=== PATIENT | female | born 1955 | race Caucasian/White ===

== ENCOUNTER → 2021-05-24 08:05 | Outpatient (CLI) | payer OTHER, SELFPAY ==
[2021-05-24 08:29] LABS: COVID19 -Nasal RAPID Negative (Negative)
== END ==
PROVIDERS: PCP Family Medicine; Visit Provider Specialist
DX: Z01.812 Encounter for preprocedural laboratory examination (principal); Z20.822 Contact with and (suspected) exposure to COVID-19
CPT/HCPCS: 87635

== ENCOUNTER 2021-05-24 08:11 | Day surgery (SDC) | payer OTHER, SELFPAY ==
[2021-05-15 14:28] VITALS: BMI 27.9
--- NOTE | 2021-05-24 | PATH_ITS ---
[facility] Accession Number: [id number] . 01 Material submitted: . PART A: cervix - LEEP PART B: endocervix - ENDOCERVICAL CURETTAGE . 01 Clinical history: . LEEP . 02 Diagnosis: A. Cervix, LEEP Biopsy: Focal involvement by low-grade squamous intraepithelial lesion / SERG 1. Changes consistent with previous instrumentation are present. The apparent margins are negative for dysplasia or malignancy. No invasive tuomr identified. . B. Endocervical Curettings: Rare, benign, cystically dilated glands and strips of glandular epithelium; negative for glandular dysplasia or malignancy. Scant avulsed portions of metaplastic squamous mucosa; negativ for squamous dysplasia or malignancy. V 05/28/2021 1813 Local . 02 Electronically signed: . Kim Vieyra MD, Pathologist NPI- [id number] . 01 Gross description: . A. The specimen is received in formalin, labeled LEEP, and consists of a 1.5 x 1.3 cm, mcclain-pink, smooth portion of ectocervix excised to a depth of 0.4 cm with a 0.7 x 0.1 cm os. The endocervical margin is inked blue. The ectocervical margin is inked black. The specimen is radially sectioned and entirely submitted in cassettes A1-A4. B. The specimen is received in formalin, labeled endocervical curettage, and consists of multiple minute mcclain fragments of soft tissue measuring 1.0 x 0.5 x 0.2 cm in aggregate. The specimen is filtered and entirely submitted in cassette B1. ([id number]) /FRR 05/25/2021 171 Local . 02 Pathologist provided ICD-10: N87.0 . 02 CPT . 848441, [id number] Performed at: [facility] [address] [id number] MD Waylon Matos MD Phone: [phone] [facility]formed at: [facility] [address] [place], [place] [id number] MD Irasema Nixon MD Phone: [phone]
[2021-05-24 08:34] VITALS: BMI 27.9
[2021-05-24 08:40] VITALS: BP 173/89; PULSE 82; RESP 16; TEMP 37.2; O2SAT 100
[2021-05-24] MEDS: LACTATED RINGERS 1,000 ML 42 ML IV (08:42)
[2021-05-24] MEDS: ACETAMINOPHEN 325 MG TABLET 975 MG PO (08:59)
--- NOTE | 2021-05-24 09:19 | PM.PREOP ---
Pre-operative Note COVID-19 COVID-19 status: Negative Result date/Date tested (Pos, Neg/Pending): 05/23/21 Interval Note History & Physical reviewed/Exam performed by Physician: Yes Changes to H&P: No
--- NOTE | 2021-05-24 09:43 | SUR.OPER ---
Lithotomy on padded OR bed, head on pillow, arms secured on padded arm boards at <90 degrees abduction. Legs secured in padded yellow fins stirrups.
[2021-05-24] MEDS: BUPIVACAINE 0.25% W/ EPI 30 ML VIAL INJ (09:50)
[2021-05-24] MEDS: FERRIC SUBSULFATE 8 GM SOLUTION 8 ML TOP (09:50)
[2021-05-24 09:55] VITALS: BP 116/67; PULSE 94; RESP 24; TEMP 36.5; O2SAT 100
[2021-05-24 09:59] VITALS: BP 112/64; PULSE 90; RESP 16; O2SAT 100
--- NOTE | 2021-05-24 10:01 | P.OP_ITS ---
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 A coated speculum was placed in the vagina. A single-tooth tenaculum was placed on the anterior lip of the cervix. Quarter % Marcaine with epinephrine was injected into the cervix. The loop cautery set at 60 w of cutting was used to remove the entire squamocolumnar junction. An ECC was performed. The base of the LEEP and extending outside of the LEEP was cauterized with the ball cautery set at 60 w of coag. Monsel's was placed. Patient went to recovery room in stable condition. Complications: none Post-operative Condition: stable Disposition: same day surgery Plan for aftercare: Home when awake and stable. Treatment and follow-up based on biopsy results.
[2021-05-24 10:04] VITALS: BP 132/76; PULSE 92; RESP 11; O2SAT 98
[2021-05-24 10:16] VITALS: BP 130/74; PULSE 91; RESP 13; TEMP 36.4; O2SAT 100
== END 2021-05-24 10:30 | disposition home or self-care (01) ==
PROVIDERS: PCP Family Medicine; Referring Provider Specialist; Visit Provider Specialist
PROC: 0UBC7ZZ Excision of Cervix, Via Natural or Artificial Opening (ICD-10-PCS; CPT 57522; principal; 2021-05-24 09:45)
DX: N87.0 Mild cervical dysplasia (principal); Z20.822 Contact with and (suspected) exposure to COVID-19; Z01.812 Encounter for preprocedural laboratory examination; R87.810 Cervical high risk human papillomavirus (HPV) DNA test positive
CPT/HCPCS: 57522; 87635; A9270; J2704

== ENCOUNTER → 2022-08-11 07:53 | Outpatient (CLI) | payer OTHER, SELFPAY ==
[2022-08-11 09:15] LABS: Add Manual Diff / Slide Review NO; Basophils Absolute Auto 100 /uL (0-100); Basophils Percent Auto 0.6 % (0-2); Eosinophils Absolute Auto 300 /uL (0-450); Eosinophils Percent Auto 4.3 % (2-4); Hematocrit 39.4 % (36-46); Hemoglobin 13.2 g/dL (12.0-16.0); Lymphocytes Absolute Auto 1700 /uL (1100-4500); Lymphocytes Percent Auto 20.7 % (25-40); Mean Corpuscular HGB Conc 33.4 % (30-36); Mean Corpuscular Hemoglobin 28.4 PG (26-34); Monocytes Absolute Auto 500 /uL (0-900); Monocytes Percent Auto 6.8 % (3-14); Neutrophils Absolute Auto 5400 /uL (1500-7000); Neutrophils Percent Auto 67.6 % (50-75); Platelet Count 228 X10^3/uL (150-400); Red Blood Cell Count 4.63 X10^6/uL (4.0-5.2); Red Cell Distribution Width 13.8 % (11.6-14.8)
[2022-08-11 09:44] LABS: Alanine Aminotransferase 18 IU/L (<35); Albumin 4.3 g/dL (3.5-5.0); Albumin Globulin Ratio 1.2 (1.0-2.8); Alkaline Phosphatase 109 U/L (38-126); Aspartate Aminotransferase 32 IU/L (14-36); BUN Creatinine Ratio 13.8 (6-22); Bilirubin Total 0.5 mg/dL (0.2-1.3); Blood Urea Nitrogen 12 mg/dL (7-17); Calcium 9.6 mg/dL (8.4-10.2); Carbon Dioxide 28 mmol/L (22-32); Chloride 104 mmol/L (98-107); Cholesterol 173 mg/dL (140-199); Estimated Glomerular Filt Rate > 60 mL/min (>60); Globulin 3.6 g/dL (1.7-4.1); Glucose 106 mg/dL (80-110); HDL Cholesterol 42 mg/dL (40-60); HEMOLYSIS < 15 (0-50); LDL Cholesterol Calculated 108 mg/dL (<100); Potassium 4.5 mmol/L (3.4-5.1); Sodium 141 mmol/L (137-145); Total Protein 7.9 g/dL (6.3-8.2); Triglycerides 117 mg/dL (35-150)
[2022-08-11 10:07] LABS: TSH w/ Reflex to FT4 < 0.02 uIU/mL (0.47-4.68)
[2022-08-11 10:32] LABS: Free T4, Direct Thyroxine 2.49 ng/dL (0.78-2.19)
== END ==
PROVIDERS: PCP Family Medicine; Referring Provider Family Medicine; Visit Provider Family Medicine
DX: E03.9 Hypothyroidism, unspecified (principal); Z85.3 Personal history of malignant neoplasm of breast
CPT/HCPCS: 36415; 80053; 80061; 84439; 84443; 85025

== ENCOUNTER → 2022-08-11 08:28 | Outpatient (CLI) | payer OTHER, SELFPAY ==
--- NOTE | 2022-08-11 08:30 | DI.MG.S_ITS ---
BILATERAL DIGITAL SCREENING MAMMOGRAM 3D/2D WITH CAD: 08/11/2022 CLINICAL: Routine screening. Personal history of left breast cancer. Comparison is made to exams dated: 11/18/2019 mammogram, 11/05/2018 mammogram, 09/26/2016 mammogram, and 10/30/2017 mammogram - [facility]. Both breasts are almost entirely fatty (category a/<25% glandular tissue). Current study was also evaluated with a Computer Aided Detection (CAD) system. There is a benign calcification in the left breast. There also are benign post operative findings in both breasts. No significant masses, calcifications, or other findings are seen in either breast. There has been no significant interval change. IMPRESSION: BENIGN There is no mammographic evidence of malignancy. A 1 year screening mammogram is recommended. This exam was interpreted at Station ID: [id number]. NOTE: For mammograms, a report in lay terms will be sent to the patient. Approximately 15% of breast malignancies will not be visualized mammographically. In the management of a palpable breast mass, a negative mammogram must not discourage biopsy of a clinically suspicious lesion. Electronically Signed By: Smitha piper/chester:08/12/2022 12:27:00 letter sent: Normal Exam ACR BI-RADS Category 2: Benign Finding(s) 3342F
== END ==
PROVIDERS: PCP Family Medicine; Referring Provider Family Medicine; Visit Provider Family Medicine
DX: Z12.31 Encounter for screening mammogram for malignant neoplasm of breast (principal); Z85.3 Personal history of malignant neoplasm of breast
CPT/HCPCS: 77063; 77067

== ENCOUNTER → 2023-01-29 07:41 | Outpatient (CLI) | payer OTHER, SELFPAY ==
--- NOTE | 2023-01-29 07:47 | DI.CT.S_ITS ---
PROCEDURE: CT SOFT TISSUE NECK WO/W CON INDICATIONS: Localized swelling, mass and lump, neck TECHNIQUE: Before and after the administration of intravenous contrast, 2.0 mm axial sections acquired through the neck and down to the korina. Additional 2.0 mm coronal and sagittal reformats were generated of the contrast enhanced images. For radiation dose reduction, the following was used: automated exposure control. COMPARISON: None. FINDINGS: Image quality: Excellent. Lymph nodes: No enlarged lymph nodes seen throughout the neck. Scattered subcentimeter lymph nodes are present slightly more prominent on the left the largest in level 2 a measuring 8 mm. Vessels: Visualized vasculature appears patent. Neck spaces: The oropharynx, nasopharynx, and pharynx demonstrate no mucosal lesions. The vocal cords, false vocal cords, pyriform sinuses, epiglottis, vallecula, and tongue base all appear normal. Extramucosal spaces appear unremarkable. Glands: The parotid glands appear normal. Within the left submandibular duct, there is focal enlargement measuring 1.5 x 1.2 cm. Along the posterior aspect is a 3 mm calcification. The left submandibular gland demonstrates mild hypertrophy compared to the right. There is no appears oval surrounding inflammatory change. Miscellaneous: Visualized lungs appear clear. Superficial soft tissues appear normal. No abnormal mass or inflammatory changes identified at the area palpable concern in the left neck. There is an adjacent tortuous vein. Bones: No suspicious bony lesions. Visualized sinuses and mastoids appear unremarkable. IMPRESSION: No area of abnormal mass or inflammatory change of the area palpable concern as above. Focal low attenuation with calcification along the course of the left submandibular gland. This could represent a focal area of ductal dilation secondary to partial obstruction. While there is mild hypertrophy of the left submandibular gland, there is no overt inflammatory change. Dictated by: Bharati Barrow M.D. on 01/29/2023 at 13:36 Approved by: Bharati Barrow M.D. on 01/29/2023 at 14:30
[2023-01-29 08:11] LABS: BUN Creatinine Ratio 21.4 (6-22); Blood Urea Nitrogen 18 mg/dL (7-17); Estimated Glomerular Filt Rate > 60 mL/min (>60)
== END ==
PROVIDERS: PCP Family Medicine; Referring Provider Dentist Oral and Maxillofacial Surgery; Visit Provider Dentist Oral and Maxillofacial Surgery
DX: K11.20 Sialoadenitis, unspecified (principal); R22.1 Localized swelling, mass and lump, neck
CPT/HCPCS: 36415; 70492; 82565; 84520; Q9967